=== PATIENT | female | born 1955 | race Caucasian/White ===

== ENCOUNTER 2016-09-05 08:37 | Day surgery (SDC) | payer BC ==
--- NOTE | ~2016-09-05 | EGD ---
EGD REPORT [facility] [address] [address] NAME: VENUS PELLETIER : [birth year] STATUS : REG [facility]#: [id number] AGE: 60 ADM/REG DATE : 09/05/16 MR#: [id number] REPORT SERV DATE: 09/05/16 DICTATED BY: DATE: REPORT STATUS : Draft [facility]ANS[facility]: [facility] DATE: 09/05/16 [facility] Patient Name: Venus Pelletier Date of : 1955 Attending MD: ELIOT GAYLE MD Procedure Date No Time: 09/05/2016 Procedure: Colonoscopy Indications: Screening for colorectal malignant neoplasm Referring MD: Angie FABIAN Medicines: Monitored Anesthesia Care Complications: No immediate complications. Procedure: Pre-Anesthesia Assessment: - ASA Grade Assessment: III - A patient with severe systemic disease. After I obtained informed consent, the scope was passed under direct vision. Throughout the procedure, the patient's blood pressure, pulse, and oxygen saturations were monitored continuously. The PCF [id number] was introduced through the anus and advanced to the cecum, identified by appendiceal orifice and ileocecal valve. The colonoscopy was performed without difficulty. The patient tolerated the procedure well. The quality of the bowel preparation was good. Findings: The perianal and digital rectal examinations were normal. Multiple small and large-mouthed diverticula were found in the sigmoid colon. Two sessile polyps were found in the cecum. The polyps were diminutive in size. These polyps were removed with a cold biopsy forceps. Resection and retrieval were complete. A flat polyp was found at the hepatic flexure. The polyp was small in size. The polyp was removed with a cold snare. Resection and retrieval were complete. No other significant abnormalities were identified in a careful examination of the remainder of the colon. There is no endoscopic evidence of inflammation, mass, ulcerations or angioectasia in the entire colon. Internal hemorrhoids were found during retroflexion and were Grade I (internal hemorrhoids that do not prolapse). No additional abnormalities were found on retroflexion. Impression: - Diverticulosis in the sigmoid colon. - Two diminutive polyps in the cecum. Resected and retrieved. EGD REPORT [address] [address] NAME: VENUS PELLETIER : [birth year] STATUS : REG [facility] PAT#: [id number] AGE: 60 ADM/REG DATE : 09/05/16 MR#: [id number] REPORT SERV DATE: 09/05/16 DICTATED BY: DATE: REPORT STATUS : Draft TRANSCRIBED BY: [employer] DATE: 09/05/16 - One small polyp at the hepatic flexure. Resected and retrieved. - Internal hemorrhoids. Recommendation: - Patient has a contact number available for emergencies. The signs and symptoms of potential delayed complications were discussed with the patient. Return to normal activities tomorrow. Written discharge instructions were provided to the patient. - High fiber diet. - Discharge patient to home. - Continue present medications. - Await pathology results. - Repeat colonoscopy in 3 - 5 years for surveillance. Procedure Code(s): --- Professional --- 61296, Colonoscopy, flexible, proximal to splenic flexure; with removal of tumor(s), polyp(s), or other lesion(s) by snare technique 51368, 59, Colonoscopy, flexible, proximal to splenic flexure; with biopsy, single or multiple Diagnosis Code(s): --- Professional --- K64.0, First degree hemorrhoids K57.30, Diverticulosis of large intestine without perforation or abscess without bleeding D12.3, Benign neoplasm of transverse colon D12.0, Benign neoplasm of cecum Z12.11, Encounter for screening for malignant neoplasm of colon CPT copyright 2013 [employer]. All rights reserved. The codes documented in this report are preliminary and upon security business analyst review may be revised to meet current compliance requirements. ELIOT GAYLE MD 09/05/2016 10:59 AM This report has been signed electronically. Number of Addenda: 0 Note Initiated On: 09/05/2016 10:26 AM Scope Withdrawal Time 0 hours 15 minutes 57 seconds [id number] [id number]
[~2016-09-05 08:37] MED LIST: ALEVE220 MG PO; FLAXSEED OIL1000 MG PO; MELATONIN5 M1 PO; VIVELLE-DOT0.075 MG TOP; ZYRTEC ALLGY10 MG PO
== END 2016-09-05 23:59 | disposition home health service (06) ==
LOC: DMU 08:37
PROVIDERS: Internal Medicine Gastroenterology
PROC: 0DBL8ZZ Excision of Transverse Colon, Via Natural or Artificial Opening Endoscopic (ICD-10-PCS; 2016-09-05)
PROC: 0DBH8ZX Excision of Cecum, Via Natural or Artificial Opening Endoscopic, Diagnostic (ICD-10-PCS; principal; 2016-09-05 10:00)
DX: Z12.11 Encounter for screening for malignant neoplasm of colon (principal); K63.5 Polyp of colon; K64.0 First degree hemorrhoids; K57.30 Diverticulosis of large intestine without perforation or abscess without bleeding; J45.909 Unspecified asthma, uncomplicated; E66.01 Morbid (severe) obesity due to excess calories; M19.90 Unspecified osteoarthritis, unspecified site; Z90.712 Acquired absence of cervix with remaining uterus; Z98.890 Other specified postprocedural states
CPT/HCPCS: 88305